=== PATIENT | male | born 1940 | race Caucasian/White ===

== ENCOUNTER → 2025-08-30 | Outpatient (CLI) | payer MEDICARE, OTHER, SELFPAY | END | disposition home or self-care (01) | PROVIDERS: PCP Family Medicine; Referring Provider Internal Medicine Cardiovascular Disease; Visit Provider Internal Medicine Cardiovascular Disease | DX: I25.10 Atherosclerotic heart disease of native coronary artery without angina pectoris (principal); R07.9 Chest pain, unspecified; I25.2 Old myocardial infarction; R06.09 Other forms of dyspnea | CPT/HCPCS: 78452; 93017; A9500; A4216 ==